=== PATIENT | male | born 1965 | race Two or more races ===

== ENCOUNTER 2021-09-01 10:17 | Outpatient (CLI) | payer OTHER | END 2021-09-01 10:19 | disposition home or self-care (01) | LOC: NUCLEAR 10:17 | DX: I20.8 Other forms of angina pectoris (principal) ==

== ENCOUNTER 2021-10-10 08:09 | Outpatient (CLI) | payer OTHER | END 2021-10-10 08:15 | disposition home or self-care (01) | LOC: LAB 08:09 | DX: U07.1 COVID-19 (principal); B34.1 Enterovirus infection, unspecified ==

== ENCOUNTER 2021-10-10 08:43 | Outpatient (CLI) | payer OTHER | END 2021-10-10 11:16 | disposition home or self-care (01) | LOC: NUCLEAR 08:43 | DX: I20.8 Other forms of angina pectoris (principal) | CPT/HCPCS: 78452; 93017; A9500 ==